=== PATIENT | female | born 2000 | race Caucasian/White ===

== ENCOUNTER 2018-06-06 12:45 | Emergency (ER) | END 2018-06-06 16:47 | disposition home or self-care (01) ==

== ENCOUNTER 2018-11-23 18:07 | Inpatient (IN) | payer OTHER ==
[~2018-11-23] VITALS: Ht 162.6 cm; Wt 67.4 kg
[~2018-11-23 18:07] MED LIST: ACET-2047 PO
[2018-11-23 18:15] VITALS: Ht 162.6 cm; Wt 67.4 kg
[2018-11-23 18:16] VITALS: BP 128/85; PULSE 64; RESP 20
[2018-11-23] MEDS ORDERED: PREN1TAB13 PO (18:29)
[2018-11-23] MEDS ORDERED: OXYTOCIN 30 UNITS/LR 500 ML IV SCH ×2 (21:30)
[2018-11-23] MEDS ORDERED: MINERAL OIL LIGHT 10 ML VIAL TOP PRN (21:30)
[2018-11-23] MEDS ORDERED: MISOPROSTOL 200 MCG TAB PR PRN (21:30)
[2018-11-23] MEDS ORDERED: CARBOPROST 250 MCG INJ IM PRN (21:30)
[2018-11-23] MEDS ORDERED: LIDOCAINE 1% (MPF) 30 ML INJ INJ PRN (21:30)
[2018-11-23] MEDS ORDERED: IBUPROFEN 600 MG TAB PO PRN (21:30)
[2018-11-23] MEDS ORDERED: OXYTOCIN 30 UNITS/LR 500 ML IV PRN (21:30)
[2018-11-23] MEDS ORDERED: METHYLERGONOVINE 0.2 MG INJ IM PRN (21:30)
[2018-11-23] MEDS ORDERED: BUTORPHANOL 2 MG INJ IV PRN (21:30)
--- NOTE | 2018-11-23 21:51 | HP ---
Date/Time of Note Date/Time of Note DATE: 11/23/18 TIME: 21:27 OB - History Hx of Present Free Text/Dictation 18-year-old 1 with single intrauterine at 39 weeks and 5 days referred to triage for rule out IUGR. She states good movement. She denies nausea, vomiting, shortness of breath, chest pain, headache, visual changes, vaginal bleeding or LOF. Chief Complaint: Rule out IUGR Estimated Due Date: Nov 25, 2018 : 1 Care: Good Care Ultrasounds: Normal mid trimester US Obstetrical Complications: None Medical Complications: None Past Family/Social History * Past Medical, Surgical, Family and Obstetric Histories reviewed from chart. Blood Type: O+ Rubella: immune RPR/VDRL: Negative GBS Status: Negative HBsAG: Negative OB Admission Exam Vital Signs Vital Signs Vital Signs Date Temp Pulse Resp B/P (MAP) Pulse Ox O2 O2 Flow FiO2 Time Delivery Rate 11/23/18 97.6 64 20 128/85 Room Air 18:16 (99) Physical Exam HEENT: WNL Heart: Rhythm Normal Lungs: Clear Abdomen: WNL Extremities: Normal Cervical Dilatation: None Effacement: 0% Station: -3 Membranes: Intact Heart Rate: 130's Accelerations: Accelerations Present Decelerations: No Decelerations Varibility: Moderate Contractions on Admission: None OB Assessment/Plan Other plan: 18 years old 1 with single intrauterine at 39 weeks and 5 days with IUGR. Ultrasound performed, gestational age 36 weeks and 6 days with slightly elevated velocity in the mid and distal umbilical artery. MARGARITA of 15.2. She was admitted for induction of labor - FHR: No sign of metabolic acidosis- Category I - Continuous EFM, toco - CBC, blood type and screen - Analgesia options with R/B/A discussed in detail with patient - Epidural per patient request - IOL with cytotec - Please see the orders - O+/Rubella: Immune - GBS: negative Admission, procedures, expectations, risks and possible complications have been discussed in detail with the patient. Risk of vaginal delivery including but not limited to bleeding, infection, cervical laceration, placental retention, injury to fetus, blood transfusion, blood transfusion related infection, risk of anesthesia, adhesion, cervical laceration, episiotomy/laceration, possible delivery with risk of bleeding, infection, injury to other organs (bowel, bladder, ureter, vessels, nerves), injury to fetus, blood transfusion, blood transfusion related infection, risk of anesthesia, scar and hernia formation, needs for future , removal of uterus or any other indicated surgery discussed with the patient. She expressed understanding and repeats the risks. All of her questions were answered. She signed the informed consent. PHYSICIAN'S VERIFICATION OF INFORMED CONSENT The patient and her counseled regarding the procedure, its indications, risks, potential complications and alternatives and any questions were answered. Consent was obtained. PLANNED PROCEDURE/TREATMENT: Vaginal delivery, episiotomy, repair of laceration possible delivery BETTY WALLS Nov 23, 2018 21:50
[2018-11-23] MEDS: LACTATED RINGER'S 1,000 ML IV SCH (22:22)
[2018-11-23] MEDS: MISOPROSTOL 50 MCG CAPSULE PO PRN (23:26)
[2018-11-24] MEDS: LACTATED RINGER'S 1,000 ML IV SCH ×2 (04:03→12:18)
--- NOTE | 2018-11-24 04:15 | TRIAGE ---
OB Triage Datetime Report Generated by CPN: 11/24/2018 04:15 Datetime: 11/24/2018 04:05 Vaginal Exam Dilatation (cms): 2.0 Effacement (%): 50 Station: -3 Exam By: Stefania EAlejandra RN Vaginal Bleeding: None Cervix, Consistency: Soft Cervix, Position: Posterior Datetime: 11/24/2018 03:41 Pain Assessment Pain Scale: 2 Pain Presence: Intermittent Pain Type: Cramping; Contraction Pain Location: Abdomen Pain Relief Measures: Comfort Measures Datetime: 11/24/2018 02:45 Resting Tone Landrum: Relaxed Pain Assessment Pain Scale: 2 Pain Presence: Intermittent Pain Type: Cramping; Contraction Pain Location: Abdomen Pain Relief Measures: Comfort Measures Datetime: 11/24/2018 01:21 Pain Assessment Pain Scale: 2 Pain Presence: Intermittent Pain Type: Cramping; Contraction Pain Location: Abdomen Pain Relief Measures: Comfort Measures Datetime: 11/24/2018 01:00 Labor Evaluation Frequency: 1-4.5 Monitor Mode: External Duration (sec)2399: 50-140 Pattern: Normal: <= 5 Contractions in 10 Minutes Heart Rate FHR Baseline Rate: 130 Monitor Mode: External US Variability: Moderate 6-25 bpm Accelerations: Prolonged Decelerations: None Category: Category I Datetime: 11/24/2018 00:00 Labor Evaluation Frequency: 2-4.5 Monitor Mode: External Duration (sec)2399: 40-130 Pattern: Normal: <= 5 Contractions in 10 Minutes Heart Rate FHR Baseline Rate: 125 Monitor Mode: External US Variability: Moderate 6-25 bpm Accelerations: 15X15 Decelerations: None Category: Category I Datetime: 11/23/2018 23:50 Quality: Mild Resting Tone Landrum: Relaxed Pain Assessment Pain Scale: 2 Pain Presence: Intermittent Pain Type: Cramping; Contraction Pain Location: Abdomen Pain Relief Measures: Comfort Measures Datetime: 11/23/2018 23:26 Pain Assessment Pain Scale: 1 Pain Presence: Intermittent Pain Type: Cramping; Contraction Pain Location: Abdomen Pain Relief Measures: Comfort Measures Datetime: 11/23/2018 23:00 Labor Evaluation Frequency: 2-5 Monitor Mode: External Duration (sec)2399: 60-110 Pattern: Normal: <= 5 Contractions in 10 Minutes Heart Rate FHR Baseline Rate: 130 Monitor Mode: External US Variability: Moderate 6-25 bpm Accelerations: 15X15 Decelerations: None Category: Category I Datetime: 11/23/2018 22:56 Resting Tone Landrum: Relaxed Pain Assessment Pain Scale: 1 Pain Presence: Intermittent Pain Type: Cramping; Contraction Pain Location: Abdomen Datetime: 11/23/2018 22:26 Vaginal Exam Dilatation (cms): 0.0 Effacement (%): 0 Station: -3 Exam By: Stefania Mccoy RN Membrane Status: Intact Vaginal Bleeding: None Cervix, Consistency: Soft Cervix, Position: Posterior Datetime: 11/23/2018 22:00 Labor Evaluation Frequency: irregualar Monitor Mode: External Duration (sec)2399: 60-100 Pattern: Normal: <= 5 Contractions in 10 Minutes Heart Rate FHR Baseline Rate: 130 Monitor Mode: External US Variability: Moderate 6-25 bpm Accelerations: 15X15 Decelerations: None Category: Category I Datetime: 11/23/2018 21:49 Stage of : Labor Assessment Type: Admission Assessment Vaginal Bleeding: None Maternal Assessment Level of Consciousness: Fully Conscious DTR's/Clonus: DTRs 2+; No Clonus Headache: Denies Blurred Vision: No Respiratory Effort: Unlabored; Regular Rhythm; Equal Expansion Breath Sounds, Left: Clear and Equal Breath Sounds, Right: Clear and Equal Nausea/Vomiting: Denies RUQ Epigastric Pain: Denies Lower Extremities Edema: None Degree: None Upper Extremities Edema: None Degree: None Facial Edema: None Temperature Route: Oral Fall Risk Assessment History of Falling: (0) No Secondary Diagnosis: (0) No Ambulatory Aid: (0) Bedrest/Nurse Assist IV Therapy: (0) No Gait: (0) Normal/Bedrest/Immobile Mental Status: (0) Oriented to Own Ability Fall Score: 0 Fall Risk Score Definition: No Risk: No action required Comments: Patient states she feels active movement Pain Assessment Pain Scale: 1 Pain Presence: Intermittent Pain Type: Cramping; Contraction Pain Location: Abdomen Pain Relief Measures: Comfort Measures Datetime: 11/23/2018 21:48 Monitor Mode: External (Annotations: reapplied) Resting Tone Landrum: Relaxed Monitor Mode: External US (Annotations: reapplied) Datetime: 11/23/2018 21:33 Membrane Status: Intact Datetime: 11/23/2018 21:30 Vaginal Exam Dilatation (cms): 0.0 Datetime: 11/23/2018 21:15 Stage of : OB Triage Labor Evaluation Frequency: IRREG Monitor Mode: External Duration (sec)2399: 30-50 Quality: Mild Pattern: Normal: <= 5 Contractions in 10 Minutes Resting Tone Landrum: Relaxed Heart Rate FHR Baseline Rate: 120 Monitor Mode: External US FHR Baseline Changes: No Baseline Change Variability: Moderate 6-25 bpm Accelerations: 15X15 Decelerations: None Category: Category I Pain Assessment Pain Scale: 0 Pain Presence: None/Denies Pain Type: N/A Pain Goal: 0 Datetime: 11/23/2018 20:15 Stage of : OB Triage Labor Evaluation Frequency: IRREG Monitor Mode: External Duration (sec)2399: 40-60 Quality: Mild Pattern: Normal: <= 5 Contractions in 10 Minutes Resting Tone Landrum: Relaxed Heart Rate FHR Baseline Rate: 125 Monitor Mode: External US FHR Baseline Changes: No Baseline Change Variability: Moderate 6-25 bpm Accelerations: 15X15 Decelerations: None Category: Category I Pain Assessment Pain Scale: 0 Pain Presence: None/Denies Pain Type: N/A Pain Goal: 0 Datetime: 11/23/2018 19:14 Labor Evaluation Frequency: X2 Monitor Mode: External Duration (sec)2399: 40 Quality: Mild Pattern: Normal: <= 5 Contractions in 10 Minutes Resting Tone Landrum: Relaxed Heart Rate FHR Baseline Rate: 120 Monitor Mode: External US FHR Baseline Changes: No Baseline Change Variability: Moderate 6-25 bpm Accelerations: 15X15 Decelerations: None Category: Category I Pain Assessment Pain Scale: 0 Pain Presence: None/Denies Pain Type: N/A Pain Goal: 0 Datetime: 11/23/2018 18:29 Labor Evaluation Frequency: X1 Monitor Mode: External Duration (sec)2399: 40 Quality: Mild Pattern: Normal: <= 5 Contractions in 10 Minutes Resting Tone Landrum: Relaxed Heart Rate FHR Baseline Rate: 130 Monitor Mode: External US FHR Baseline Changes: No Baseline Change Variability: Moderate 6-25 bpm Accelerations: 15X15 Decelerations: None Category: Category I Pain Assessment Pain Scale: 0 Pain Presence: None/Denies Pain Type: N/A Pain Goal: 0 Datetime: 11/23/2018 18:12 Time of Arrival: 11/23/2018 21:45 EGA: 39.5 Arrived By: Ambulatory; Transfer Arrived From: OB triage Datetime: 11/23/2018 18:11 Stage of : OB Triage Assessment Type: Triage Maternal Assessment Level of Consciousness: Fully Conscious DTR's/Clonus: DTRs 2+; No Clonus Headache: Denies Blurred Vision: No Respiratory Effort: Unlabored; Regular Rhythm; Equal Expansion Nausea/Vomiting: Denies RUQ Epigastric Pain: Denies Lower Extremities Edema: None Degree: None Upper Extremities Edema: None Degree: None Facial Edema: None Fall Risk Assessment History of Falling: (0) No Secondary Diagnosis: (0) No Ambulatory Aid: (0) Bedrest/Nurse Assist IV Therapy: (0) No Gait: (0) Normal/Bedrest/Immobile Mental Status: (0) Oriented to Own Ability Fall Score: 0 Fall Risk Score Definition: No Risk: No action required Monitor Mode: External Monitor Mode: External US Pain Assessment Pain Scale: 0 Pain Presence: None/Denies Pain Type: N/A Pain Goal: 0 Datetime: 11/23/2018 18:03 Time of Arrival: 11/23/2018 18:03 Chief Complaint: SIZE LESS THAN DATES Movement: Present Contractions: Denies/Absent Rupture of Membranes: Denies Vaginal Bleeding: None Vaginal Discharge: Denies Recent Sexual Intercouse: Denies Abdominal Trauma: Not Applicable Patient Complaints: None Additional Patient Complaints: CAME IN FROM CLINIC WITH ORDERS Time Provider Notified: 11/23/2018 19:45 Provider Notified: TITI Initial Plan: BPP, MICHELLET, PRANAYW
[2018-11-24] MEDS: MISOPROSTOL 50 MCG CAPSULE PO PRN (05:45)
[2018-11-24] MEDS ORDERED: OXYTOCIN 30 UNITS/LR 500 ML IV SCH (11:00)
--- NOTE | 2018-11-24 12:27 | PREAC ---
Date/Time of Note Date/Time of Note DATE: 11/24/18 TIME: 12:26 Anesthesia Eval and Record Evaluation Time Pre-Procedure Interview DATE: 11/24/18 TIME: 12:26 Age 18 Sex female NPO: 8 hrs Preoperative diagnosis labor pain Planned procedure labor epidural Past Medical History Past Medical History: None Surgery & Anesthesia Issues No known issue Meds Anticoagulation: No Beta Jacky within 24 hr: No Reason Beta Jacky not given: Pt. not on B-Jacky Active Scripts Acetaminophen* (Acetaminophen*) 650 Mg Tablet, 650 MG PO Q6H PRN for PAIN AND OR ELEVATED TEMP, #30 TAB Prov:LIANNE WEBB PA-C 06/06/18 Reported Medications Pnv95/Ferrous Fumarate/FA ( Vitamins Tablet) 1 Each Tablet, 1 EACH PO DAILY, TAB 11/23/18 Current Medications Lactated Ringer's 1,000 ml @ 125 mls/hr Q8H IV Last administered on 11/24/18at 12:18; Admin Dose 125 MLS/HR; Start 11/23/18 at 21:16 Butorphanol Tartrate (Stadol) 2 mg Q2H PRN IV .PAIN; Start 11/23/18 at 21:30 Lidocaine (Xylocaine 1% (Mpf)) 30 ml ONCE PRN INJ .EPISIOTOMY; Start 11/23/18 at 21:30 Oxytocin/Lactated Ringer's 500 ml @ 500 mls/hr ONCE POST IV ; Start 11/23/18 at 21:30 Oxytocin/Lactated Ringer's 500 ml @ 125 mls/hr POST IV ; Start 11/23/18 at 21:30 Ibuprofen (Motrin) 600 mg ONCE PRN PO .PAIN 1-5; Start 11/23/18 at 21:30 Oxytocin/Lactated Ringer's 500 ml @ 0 mls/hr ONCE PRN IV .VAGINAL BLEEDING; Start 11/23/18 at 21:30 Methylergonovine Maleate (Methergine) 0.2 mg ONCE PRN IM .VAGINAL BLEEDING; Start 11/23/18 at 21:30 Carboprost Tromethamine (Hemabate) 250 mcg ONCE PRN IM .VAGINAL BLEEDING; Start 11/23/18 at 21:30 Misoprostol (Cytotec) 1,000 mcg ONCE PRN MD .VAGINAL BLEEDING; Start 11/23/18 at 21:30 Misoprostol (Cytotec 50 Mcg Capsule) 50 mcg Q4 PRN PO CERVICAL RIPENING Last administered on 11/24/18at 05:45; Admin Dose 50 MCG; Start 11/23/18 at 21:30 Mineral Oil (Muri-Lube) 10 ml ONCE PRN TOP DELIVERY; Start 11/23/18 at 21:30; Stop 11/24/18 at 21:29 Oxytocin/Lactated Ringer's 500 ml @ 0 mls/hr FOR INDUCTION IV Last administered on 11/24/18at 10:54; Admin Dose 2 MLS/HR; Start 11/24/18 at 11:00 Meds reviewed: Yes Allergies Coded Allergies: No Known Allergy (Unverified , 06/06/18) Allergies Reviewed: Yes Labs/Studies Labs Reviewed: Reviewed by anesthesiologist Result Diagram: 11/23/18 2215 Laboratory Tests 11/23/18 22:15 Blood Bank Test 11/23/18 19:50 Antibody Screen NEGATIVE Blood Type O POSITIVE Rh Immune Globulin Candidate NO test: Positive Pre-procedure Exam Last vitals Vital Signs Date Temp Pulse Resp B/P (MAP) Pulse Ox O2 O2 Flow FiO2 Time Delivery Rate 11/23/18 97.6 64 20 128/85 Room Air 18:16 (99) Airway: Adequate mouth opening, Adequate thyromental dist Mallampati: Mallampati III Teeth: Normal Lung: Normal Heart: Normal ASA Physical Status ASA physical status: 2 Emergency: None Planned Anesthetic Neuraxial: Epidural Planned Pain Management Epidural, Parenteral pain med Pre-operative Attestations Prior to commencing anesthesia and surgery, the patient was re-evaluated, there was verification of: *The patient's identity *The results of appropriate recent lab work and preoperative vital signs *The above evaluation not changing prior to induction *Anesthetic plan, risk benefits, alternative and complications discussed with patient/family; questions answered; patient/family understands, accepts and wishes to proceed. TON ASHTON MD Nov 24, 2018 12:27
[2018-11-24] MEDS ORDERED: ONDANSETRON 4 MG INJ IV PRN ×2 (12:30→17:30)
[2018-11-24] MEDS ORDERED: FENTAnyl 2MCG/ML-ROPIV 0.2% 100 ML BAG EPI SCH (12:30)
[2018-11-24] MEDS ORDERED: ZOLPIDEM 5 MG TAB PO PRN ×2 (12:30→17:30)
[2018-11-24] MEDS ORDERED: DIPHENHYDRAMINE 50 MG INJ IV PRN ×2 (12:30→17:30)
[2018-11-24] MEDS ORDERED: KETOROLAC 30 MG INJ IV PRN (12:30)
[2018-11-24] MEDS ORDERED: NALOXONE (0.4 MG/ML) INJ IV PRN (12:30)
[2018-11-24] MEDS ORDERED: HYDROmorphONE 0.5 MG/0.5 ML SYG IV PRN ×2 (12:30)
[2018-11-24] MEDS: DEXTROSE 5%-LR 1,000 ML IV SCH (14:55)
--- NOTE | 2018-11-24 17:17 | LDN ---
Date/Time of Note Date/Time of Note DATE: 11/24/18 TIME: 17:14 Delivery Summary 18-year-old 1 with single intrauterine at 39 weeks and 6 days delivered a viable female over median episiotomy at 15:59. Nose and mouth suctioned. Rest of body delivered. Cord clamped and cut after stopping pulsation. Baby given to the nurse. Placenta delivered spontaneously and intact with three-vessel cord. Episiotomy repaired with 2-0 and 3-0 Vicryl. Patient tolerated procedure well. Weight 3580 g - 7 pound 14 ounces Height 20 inches 9 at 1 minutes and 9 at 5 minutes EBL 400 mL Weeks of Gestation 39 weeks and 6 days Placenta Delivered: Spontaneously Meconium: none Episiotomy: Yes Indication for episiotomy Facilitate vaginal delivery Anesthesia type: Epidural Estimated blood loss: 400 Sponge & Needle done & correct: Yes All needle counts correct: Yes Any foreign bodies felt in the: No Delivery Information Sex Infant Sex: female Apgars 1 Minute: 9 5 Minute: 9 10 Minute: 10 Suctioning Nose & mouth suctioned at bree: Yes Umbilical Cord Umbilical cord with: 3 Vessels Cord Blood was obtained: Yes Mother & Baby Disposition Disposition Mom & Baby to Maternity; Good: Yes BETTY WALLS Nov 24, 2018 17:17
[2018-11-24] MEDS ORDERED: OXYCODONE/ASPIRIN (4.88/325) TAB PO PRN (17:30)
[2018-11-24] MEDS ORDERED: MISOPROSTOL 200 MCG TAB PR PRN (17:30)
[2018-11-24] MEDS ORDERED: BENZOCAINE 20% 56 ML SPRAY TOP PRN (17:30)
[2018-11-24] MEDS ORDERED: DIBUCAINE 1% 30 GM OINT TOP PRN (17:30)
[2018-11-24] MEDS ORDERED: WITCH HAZEL/GLYCERIN PAD PR PRN (17:30)
[2018-11-24] MEDS ORDERED: METHYLERGONOVINE 0.2 MG INJ IM PRN (17:30)
[2018-11-24] MEDS ORDERED: LANOLIN HPA 1 PKT TOP PRN (17:30)
[2018-11-24] MEDS ORDERED: OXYTOCIN 30 UNITS/LR 500 ML IV PRN (17:30)
[2018-11-24] MEDS ORDERED: ACETAMINOPHEN 325 MG TAB PO PRN (17:30)
[2018-11-24] MEDS ORDERED: CARBOPROST 250 MCG INJ IM PRN (17:30)
[2018-11-24] MEDS ORDERED: SENNA/DOCUSATE NA (8.6MG/50MG) TAB PO PRN (17:30)
[2018-11-24 18:00] VITALS: BP 127/57; PULSE 68; RESP 18
[2018-11-24] MEDS: IBUPROFEN 600 MG TAB PO SCH (18:33)
[2018-11-24 18:36] VITALS: BP 125/88; PULSE 77; RESP 18
[2018-11-24 20:30] VITALS: BP 125/84; PULSE 71; RESP 20
[2018-11-25] VITALS (7 sets, daily range): BP systolic 107–130; BP diastolic 58–79; PULSE 64–92; RESP 16–20
[2018-11-25] MEDS: LACTATED RINGER'S 1,000 ML IV* SCH ×3 (00:43→09:17)
[2018-11-25] MEDS: IBUPROFEN 600 MG TAB PO SCH ×5 (00:43→23:39)
[2018-11-25] MEDS: DEXTROSE 5%-LR 1,000 ML IV SCH ×2 (01:17→14:57)
--- NOTE | 2018-11-25 06:10 | NUR ---
E.O.S.S. Patient VSS. Voiding with difficulty. Zhong Catheter inserted and urine cultures sent to lab. Patient otherwise bonding well with baby. Feeding via best on demand. Pain tolerable at 2.
--- NOTE | 2018-11-25 15:11 | PN ---
Date/Time of Note Date/Time of Note DATE: 11/25/18 TIME: 15:08 OB Subjective Subjective Subjective Spitting. Urinated. Vaginal bleeding decreased. Denies any pain. Has a Zhong placed due to swelling of the labia and trouble with urination. Denies any symptom. Breast-feeding. Baby at bedside. OB Objective Objective Objective General appearance: Alert and oriented x4 does not appear to be in any acute distress Abdomen: Soft, fundus firm and palpable below the umbilicus and nontender Extremities : no calf tenderness, no click no edema no cord Zhong draining clear yellow urine VS - Last 72 Hours, by Label Date Temp Pulse Resp B/P (MAP) Pulse Ox O2 O2 Flow FiO2 Time Delivery Rate 11/25/18 98.4 64 16 114/70 Room Air 12:30 (85) 11/25/18 98.6 74 17 114/68 Room Air 08:00 (83) 11/25/18 98.8 92 18 115/63 Room Air 04:41 (80) 11/25/18 97.8 76 18 107/58 Room Air 04:00 (74) 11/25/18 97.5 72 20 113/72 Room Air 00:45 (86) 11/24/18 97.7 71 20 125/84 Room Air 20:30 (98) 11/24/18 98.9 77 18 125/88 Room Air 18:36 (100) 11/24/18 99.7 68 18 127/57 Room Air 18:00 (80) 11/23/18 97.6 64 20 128/85 Room Air 18:16 (99) Laboratory Tests Test 11/25/18 07:07 White Blood Count 14.7 #H Red Blood Count 3.07 #L Hemoglobin 9.5 #L Hematocrit 27.9 #L Mean Corpuscular Volume 90.9 Mean Corpuscular Hemoglobin 30.9 Mean Corpuscular Hemoglobin Concent 34.1 Red Cell Distribution Width 14.5 Platelet Count 112 #L Mean Platelet Volume 12.3 H Immature Granulocytes % 0.700 H Neutrophils % 77.2 H Lymphocytes % 14.4 L Monocytes % 7.0 Eosinophils % 0.4 Basophils % 0.3 Nucleated Red Blood Cells % 0.0 Immature Granulocytes # 0.110 H Neutrophils # 11.4 H Lymphocytes # 2.1 Monocytes # 1.0 H Eosinophils # 0.1 Basophils # 0.1 Nucleated Red Blood Cells # 0.0 OB Assessment/Plan Other Assessment: day #1 Status post Urinary retention, inability to urinate comfortably likely due to regional anesthesia status post Zhong placement Doing well Mild anemia asymptomatic Continue keeping Zhong for 24 hours, DC Zhong tomorrow. PVR trial prior to discharge home Routine care Anticipate DC home tomorrow CASSANDRA DRIVER MD Nov 25, 2018 15:11
--- NOTE | 2018-11-25 17:27 | NUR ---
EOSS: Patient's vital signs remain stable throughout this shift. Patient is due to void after catheter was removed at 1630. She is bonding well with her baby and is moving towards goals.
[2018-11-26 04:36] VITALS: BP 102/72; PULSE 76; RESP 18
--- NOTE | 2018-11-26 05:14 | NUR ---
EOSS: VITAL SIGNS STABLE. VOIDING WITHOUT DIFFICULTY. NO ACUTE DISTRESS. WELL. BONDING WELL WITH BABY. BOYFRIEND PRESENT AT BEDSIDE.
[2018-11-26] MEDS: IBUPROFEN 600 MG TAB PO SCH ×2 (05:49→12:54)
[2018-11-26 08:30] VITALS: BP 109/74; PULSE 90; RESP 18
[2018-11-26] MEDS ORDERED: DIPHTH/TET/ACEL PERTUSS (ADULT) 0.5 ML VIAL IM* ONE (09:00)
[2018-11-26] MEDS ORDERED: INFLUENZA VIRUS VACCINE 0.5 ML (DISPENSING) IM* ONE (09:00)
[2018-11-26] MEDS ORDERED: MEASLES,MUMPS,RUBELLA VACCINE INJ SC* ONE (09:00)
--- NOTE | 2018-11-26 13:30 | PAC ---
Date/Time of Note Date/Time of Note DATE: 11/26/18 TIME: 13:29 Post-Anesthesia Notes Post-Anesthesia Note Last documented vital signs Vital Signs Date Temp Pulse Resp B/P (MAP) Pulse Ox O2 O2 Flow FiO2 Time Delivery Rate 11/26/18 98.7 90 18 109/74 Room Air 08:30 (86) Activity: WNL Respiratory function: WNL Cardiovascular function: WNL Mental status: Baseline Pain reasonably controlled: Yes Hydration appropriate: Yes Nausea/Vomiting absent: Yes TON ASHTON MD Nov 26, 2018 13:29
--- NOTE | 2018-11-26 13:52 | DS ---
Date/Time of Note Date/Time of Note DATE: 11/26/18 TIME: 13:51 Obstetrical Discharge Record Final Diagnosis Final Diagnosis: Term delivered Vaginal Delivery Obstetrical Delivery: Spontaneous, Episiotomy, Repaired Complications Induction: Yes Rupture of Membranes: No Condition on Discharge Physical Assessment Last Vitals: vss afebrile Voiding: Yes Bowel Movement: Yes Breast: Soft, non-tender Fundus: Firm Abdomen and Incision: n/a Episiotomy: healing ok Calf Tenderness: No Patient Condition: Stable YESENIA PATINO MD Nov 26, 2018 13:52
--- NOTE | 2018-11-26 13:54 | PD.PPDC ---
SAW REPAIRER Discharge Instruction Diagnosis [id number] Final Diagnosis: Pxysu7y s/p Condition [id number] Patient Condition: Qqgio4w Stable Diet [id number] Diet: Krtgq8j Resume Regular Diet Activity/Restrictions Zeigx1Ag Activity: Doxzb7a May Shower [id number] Restrictions: Ackov5e No Lifting No Sexual Activity Nothing in the Vagina No [place] No Tampons, douche Follow-up Follow-up with Physician: 2, Week/Weeks Return to clinic for Fvyaa2Dy VICE PRINCIPAL Instructions: Hoyhb9t Fever greater than 101 Chills Worsening abdominal pain Excessive Vaginal Bleeding More than 2 pads per hour Unable to tolerate diet Vapom1Ng OB Instructions: [id number] Breast Tenderness Depression Blurried Vision Headache YESENIA PATINO MD Nov 26, 2018 13:54
--- NOTE | 2018-11-26 14:45 | NUR ---
PT DISCHARGED HOME WITH BABY. POST CARE INSTRUCTIONS DISCUSSED AND REINFORCED. PT VERBALIZED UNDERSTANDING. Addendum: 11/26/18 at 1535 by PHILIPP NORIEGA RN Amended: Links added.
== END 2018-11-26 15:10 | disposition home or self-care (01) | DRG 807 ==
LOC: OBT 18:07 → L-D 18:08 → OBT 20:40 → L-D 23:30 → PP1 11-24 17:50
PROVIDERS: ADMIT Obstetrics & Gynecology; ATTEND Obstetrics & Gynecology
PROC: 10E0XZZ Delivery of Products of Conception, External Approach (ICD-10-PCS; principal; 2018-11-24)
PROC: 0W8NXZZ Division of Female Perineum, External Approach (ICD-10-PCS; 2018-11-24)
DX: O36.5930 Maternal care for other known or suspected poor fetal growth, third trimester, not applicable or unspecified (principal); R33.9 Retention of urine, unspecified; O90.81 Anemia of the puerperium; D64.9 Anemia, unspecified; Z37.0 Single live birth; Z3A.39 39 weeks gestation of pregnancy; Z23 Encounter for immunization
CPT/HCPCS: 62319; 76815; 76818; 80053; 81003; 84560; 85025; 85610; 85730; 86592; 86850; 86900; 86901; 87086; 87340; 90715; G0463; J0595; J2210; J2405; J2590; J3010; J7120; J7121